=== PATIENT | male | born 1985 | race Native Hawaiian/Other Pacific Islander ===

== ENCOUNTER 2020-02-12 02:38 | Emergency (ER) | payer OTHER ==
[~2020-02-12] VITALS: Ht 182.9 cm; Wt 61.2 kg
[2020-02-12 03:50] VITALS: BP 107/81; TEMP 98.7
== END 2020-02-12 03:55 | disposition home or self-care (01) ==
LOC: ED 02:38
DX: L03.012 Cellulitis of left finger (principal)
CPT/HCPCS: 99283; J1885

== ENCOUNTER 2020-03-12 02:17 | Emergency (ER) | payer OTHER ==
[~2020-03-12] VITALS: Ht 182.9 cm; Wt 65.8 kg
[2020-03-12 04:38] VITALS: BP 118/82; TEMP 98.2
== END 2020-03-12 04:39 ==
LOC: ED 02:17
DX: S20.212A Contusion of left front wall of thorax, initial encounter (principal); S00.83XA Contusion of other part of head, initial encounter; F19.10 Other psychoactive substance abuse, uncomplicated; V57.1XXA Passenger in pick-up truck or van injured in collision with fixed or stationary object in nontraffic accident, initial encounter; Y92.89 Other specified places as the place of occurrence of the external cause
CPT/HCPCS: 80307; 80320; 81000; 87088; 96372; 99283; J1885